=== PATIENT | female | born 1985 | race Caucasian/White ===

== ENCOUNTER 2018-03-15 21:59 | Observation (INO) | payer SELFPAY ==
[~2018-03-15] VITALS: Ht 157.5 cm; Wt 88.5 kg
[2018-03-15] MEDS ORDERED: PREN1TAB33 MT (23:18)
== END 2018-03-15 23:45 | disposition home or self-care (01) ==
LOC: L&D 21:59
PROVIDERS: ADMIT Obstetrics & Gynecology; ATTEND Obstetrics & Gynecology
DX: O26.893 Other specified pregnancy related conditions, third trimester (principal); R10.30 Lower abdominal pain, unspecified; Z3A.35 35 weeks gestation of pregnancy
CPT/HCPCS: 99281; G0378